=== PATIENT | male | born 1990 | race Asian ===

== ENCOUNTER 2024-05-15 13:32 | Emergency (ER) | payer OTHER ==
[2024-05-15 13:43] VITALS: BP 126/75; PULSE 83; RESP 20; TEMP 98.6; BMI 26.6
[2024-05-15] MEDS: SILVER SULFADIAZINE 1% TOP CREAM 50 GM JAR TP ONE (14:00)
[2024-05-15] MEDS ORDERED: SILVER SULFADIAZINE 1% TOP CREAM 50 GM JAR TP ONE (14:00)
[2024-05-15] MEDS ORDERED: ACETAMINOPHEN 500 MG TABLET (FP) ONE (14:06)
[2024-05-15] MEDS: ACETAMINOPHEN 500 MG TABLET (FP) PO ONE (14:07)
== END 2024-05-15 14:38 | disposition home or self-care (01) ==
LOC: JERFT 13:32
DX: T23.102A Burn of first degree of left hand, unspecified site, initial encounter (principal); X15.3XXA Contact with hot saucepan or skillet, initial encounter
CPT/HCPCS: 99283-25